=== PATIENT | female | born 1990 ===

== ENCOUNTER 2018-11-22 23:01 | Emergency (ER) | payer OTHER ==
[2018-11-22] MEDS ORDERED: Naproxen TAB* 250 MG PO ONE (23:17)
[2018-11-22] MEDS ORDERED: Dexamethasone IV* 4 MG/ML 1 ML (4 MG) IM ONE (23:26)
--- NOTE | 2018-11-22 23:30 | ED ---
Neurological HPI - HPI Summary HPI Summary: This patient is a 28 year old female presenting to [facility] with a chief complaint of neck numbness since 1800 today. Patient states that she woke up from a nap at 1800 today and woke up to numbness on the base of her neck. Eventually, the numbness spread to the right side of her face and shoulder. Patient had a pinched nerve on her left side 3 weeks ago and these symptoms feel similar. The pain is rated 0/10 in severity. Symptoms aggravated by nothing. Symptoms alleviated by nothing. Patient additionally reports shooting pain down right arm , shoulder pain. - History of Current Complaint Chief Complaint: EDNeckComplaint Stated Complaint: NUMBNESS IN NECK Time Seen by Provider: 11/22/18 23:11 Hx Obtained From: Patient Onset/Duration: Still Present Timing: Constant Onset Severity: Mild Current Severity: Mild Number of Seizures: 0 Neurological Deficit Location: Facial, RUE Pain Intensity: 0 Pain Scale Used: 0-10 Numeric Character: Numbness/Tingling Aggravating: Nothing Alleviating: Nothing Associated Signs and Symptoms: Positive: Pain - Allergy/Home Medications Allergies/Adverse Reactions: Allergies Allergy/AdvReac Type Severity Reaction Status Date / Time amoxicillin [From Augmentin] Allergy Vomiting Verified 11/22/18 23:07 clavulanic acid Allergy Vomiting Verified 11/22/18 23:07 [From Augmentin] PMH/Surg Hx/FS Hx/Imm Hx Previously Healthy: No Opthamlomology History: Denies: Hx Legally Blind EENT History: Denies: Hx Deafness Infectious Disease History: No Infectious Disease History: Denies: History Other Infectious Disease, Traveled Outside the [place] in Last 30 Days - Family History Known Family History: Positive: None - Social History Alcohol Use: Rare Substance Use Type: Reports: None Smoking Status (MU): Never Smoked Tobacco Review of Systems Negative: Fever Positive: Other - pain down right arm, shoulder pain Positive: Numbness All Other Systems Reviewed And Are Negative: Yes Physical Exam - Summary Physical Exam Summary: Appearance: Well appearing, no pain distress Skin: warm, dry, reflects adequate perfusion Head/face: normal Eyes: EOMI, [facility] [place] [facility] ENT: mucous membranes moist Neck: supple, non-tender Respiratory: CTA, breath sounds present Cardiovascular: RRR, pulses symmetrical Abdomen: non-tender, soft Bowel Sounds: present Musculoskeletal: Muscular tenderness in right trapezius area, right paracervical musculature Neuro: normal, sensory motor intact, A&Ox3 Triage Information Reviewed: Yes Vital Signs On Initial Exam: Initial Vitals Temp Pulse Resp BP Pulse Ox 98.0 F 81 16 107/80 97 11/22/18 23:05 11/22/18 23:05 11/22/18 23:05 11/22/18 23:05 11/22/18 23:05 Vital Signs Reviewed: Yes Diagnostics - Vital Signs Vital Signs Temp Pulse Resp BP Pulse Ox 11/22/18 23:05 98.0 F 81 16 107/80 97 - Laboratory Lab Statement: Any lab studies that have been ordered have been reviewed, and results considered in the medical decision making process. - Radiology C-Spine XR Radiology Interpretation Completed By: ED Physician Summary of Radiographic Findings: C-Spine XR reveals, per ED physician, Straightening of the upper cervical spine. Pending official report. Course/Dx - Course Course Of Treatment: This patient is a 28 year old female presenting to [facility] with a chief complaint of neck numbness since 1800 today. Patient states that she woke up from a nap at 1800 today and woke up to numbness on the base of her neck. E C-Spine XR reveals, per ED physician, Straightening of the upper cervical spine consistent with muscular spasm. Pending official report. In the ED course the patient was given Cyclobenzaprine, Dexamethasone, Naproxen with relief. There has been some degree of radiculopathy. She is neurovascularly intact. Patient will be discharged with cervical strain, cervical radiculopathy. Patient is advised to follow up with PCP. The patient is agreeable with this plan. - Differential Dx Differential Diagnoses Neuro: Positive: Other - Meningitis, tension headache, cervical radiculopathy, cervical sprain/strain - Diagnoses Provider Diagnoses: Cervical strain, Cervical radiculopathy Discharge - Sign-Out/Discharge Documenting (check all that apply): Patient Departure Patient Received Moderate/Deep Sedation with Procedure: No - Discharge Plan Condition: Improved Disposition: HOME Prescriptions: Cyclobenzaprine (NF) [Cyclobenzaprine 5 MG (NF)] 5 mg PO TID PRN #15 tab PRN Reason: muscle pain, stiffness Naproxen [Naproxen 500 mg tab] 500 mg PO BID PRN #10 tablet PRN Reason: Pain Patient Education Materials: Cervical Strain (ED), Cervical Radiculopathy (ED) Referrals: [facility] [Provider Group] Additional Instructions: Call [facility] tomorrow to schedule prompt follow-up. You may need physical therapy or career services officer. Range of motion exercises, icing. Cyclobenzaprine can cause drowsiness, do not drive while taking. Drink plenty of fluids. Massage may help. Return if worse, weakness in the arm, new symptoms or other concerns. - Billing Disposition and Condition Condition: IMPROVED Disposition: Home - Attestation Statements Document Initiated by Kyle: Yes Documenting Scribe: Tonya Kelly Provider For Whom Kyle is Documenting (Include Credential): Tejas Tom MD Scribe Attestation: Tonya Valdivia scribed for Tejas Tom MD on 11/23/18 at 0426. Scribe Documentation Reviewed: Yes Provider Attestation: The documentation as recorded by the Tonya carrasquillo accurately reflects the service I personally performed and the decisions made by Tejas thao MD Status of Scribe Document: Viewed
[2018-11-22] MEDS ORDERED: Cyclobenzaprine TAB* 10 MG PO ONE (23:34)
[2018-11-22 23:44] VITALS: BP 113/85
== END 2018-11-22 23:43 | disposition home or self-care (01) ==
LOC: ED 23:01
DX: M54.12 Radiculopathy, cervical region (principal); S13.9XXA Sprain of joints and ligaments of unspecified parts of neck, initial encounter; X58.XXXA Exposure to other specified factors, initial encounter; Y93.84 Activity, sleeping; Y92.9 Unspecified place or not applicable; Z88.1 Allergy status to other antibiotic agents; Z88.0 Allergy status to penicillin
CPT/HCPCS: 72040; 96372; 99282; A9270-GY; J1100